=== PATIENT | female | born 1960 | race Caucasian/White ===

== ENCOUNTER 2023-05-08 08:23 | Day surgery (SDC) | payer MEDICARE, MEDICAID, SELFPAY ==
[2023-05-03 16:26] VITALS: BMI 32.0
--- NOTE | 2023-05-05 07:43 | MHC.SHP ---
Pre-Procedural Eval Section A Date of Service: 05/05/23 The patient is an INPATIENT: No Changes since office visit: No Cold of Flu in the past 2 weeks, No New Medical Problems, No Changes in Medication and No Patient answered all questions The History & Physical has been completed within 30 days and I have reviewed it.: Yes Section B Chief Complaint: Age-related nuclear cataract, right eye Allergies: Allergies Allergy/AdvReac Type Severity Reaction Status Date / Time bacitracin [BACITRACIN] Allergy Unknown UNKNOWN Unverified 04/09/20 14:42 benzocaine [From CEPACOL] Allergy Unknown UNKNOWN Unverified 04/09/20 14:42 Cephalosporins Allergy Unknown UNKNOWN Unverified 04/09/20 14:42 [CEPHALOSPORINS] cetylpyridinium chloride Allergy Unknown UNKNOWN Unverified 04/09/20 14:42 [From CEPACOL] clonazepam [CLONAZEPAM] Allergy Unknown UNKNOWN Unverified 04/09/20 14:42 menthol [From CEPACOL] Allergy Unknown UNKNOWN Unverified 04/09/20 14:42 nickel [NICKEL] Allergy Unknown UNKNOWN Unverified 04/09/20 14:42 silver sulfadiazine Allergy Unknown Unknown Verified 05/03/23 16:05 [From Silvadene] Sulfa (Sulfonamide Allergy Unknown Unknown Verified 05/03/23 16:05 Antibiotics) sulindac [Sulindac] Allergy Unknown UNKNOWN Unverified 04/09/20 14:42 From KEFLEX Allergy Unknown UNKNOWN Uncoded 04/09/20 14:42 From PLAQUENIL Allergy Unknown UNKNOWN Uncoded 04/09/20 14:42 From SEROQUEL Allergy Unknown UNKNOWN Uncoded 04/09/20 14:42 Plan Diagnosis/Plan: Unchanged I have reviewed the history and physical and performed a pertinent physical examination on my patient. No changes have occurred unless specified. Time Spent With Patient Time: Total time managing care of this patient today ____ minutes.
--- NOTE | 2023-05-05 10:32 | P.CONAN_ITS ---
Documented by User: Shefali Alejandro NP 05/05/23 10:37 HPI - Anesthesia Eval Consult details Narrative: 62yo F for Right Cataract Extraction IOL Insertion Medically cleared No previous cataract on record PMFSH Past Medical History Medical History Diabetes mellitus Cataract GERD (gastroesophageal reflux disease) Rheumatoid arthritis Anxiety and depression Edema of both legs Elevated cholesterol HTN (hypertension) Thyroid disease Surgical History Surgical History Hx of colonoscopy History of orthopedic surgery Social History Social History Are you a primary health care facility administrator to a significant other at home: No Do you presently have visiting nurse or other home services: Yes ([facility] -, Fri, Sat+Sun 03-29) Patient Tobacco Use Status: Current everyday Tobacco user Tobacco use type: Cigarette Cigarettes Per Day: 8 Years Smoked: 20+ Smoked in Last 30 Days: Yes Use of substances other than those prescribed or required for medical reasons: No Have you been hit, kicked, punched, or otherwise hurt by someone within the past year? If so, by whom?: No Are you DNR?: No Advance Directives: No Advance Directives Information Provided: Yes Advance Directives on File: No Recently lost weight without trying: No Meds Allergies Allergy/AdvReac Type Severity Reaction Status Date / Time bacitracin [BACITRACIN] Allergy Unknown UNKNOWN Verified 05/08/23 09:11 benzocaine [From CEPACOL] Allergy Unknown UNKNOWN Verified 05/08/23 09:11 Cephalosporins Allergy Unknown UNKNOWN Verified 05/08/23 09:11 [CEPHALOSPORINS] cetylpyridinium chloride Allergy Unknown UNKNOWN Verified 05/08/23 09:11 [From CEPACOL] clonazepam [CLONAZEPAM] Allergy Unknown UNKNOWN Verified 05/08/23 09:11 menthol [From CEPACOL] Allergy Unknown UNKNOWN Verified 05/08/23 09:11 nickel [NICKEL] Allergy Unknown UNKNOWN Verified 05/08/23 09:11 silver sulfadiazine Allergy Unknown Unknown Verified 05/08/23 09:11 [From Silvadene] Sulfa (Sulfonamide Allergy Unknown Unknown Verified 05/08/23 09:11 Antibiotics) sulindac [Sulindac] Allergy Unknown UNKNOWN Verified 05/08/23 09:11 From KEFLEX Allergy Unknown UNKNOWN Uncoded 04/09/20 14:42 From PLAQUENIL Allergy Unknown UNKNOWN Uncoded 04/09/20 14:42 From SEROQUEL Allergy Unknown UNKNOWN Uncoded 04/09/20 14:42 Home Medications Medication Instructions Recorded Confirmed Last Taken Type amitriptyline 50 mg tablet 50 mg PO BEDTIME 05/03/23 05/03/23 Unknown History atenolol 25 mg tablet 25 mg PO DAILY 05/03/23 05/03/23 Unknown History atorvastatin 10 mg tablet 10 mg PO DAILY 05/03/23 05/03/23 Unknown History buspirone 5 mg tablet 5 mg PO TID 05/03/23 05/03/23 Unknown History calcium carbonate 600 mg-vitamin 1 tab PO BID 05/03/23 05/03/23 Unknown History D3 10 mcg (400 unit) tablet celecoxib 200 mg capsule 200 mg PO BID 05/03/23 05/03/23 Unknown History clotrimazole 1 % topical cream appl topical DAILY 05/03/23 Unknown History cyanocobalamin (vitamin B-12) 1,000 mcg PO DAILY 05/03/23 05/03/23 Unknown History 1,000 mcg tablet ferrous sulfate 325 mg (65 mg 325 mg PO DAILY 05/03/23 05/03/23 Unknown History iron) tablet (FeroSul) fexofenadine 60 mg tablet 60 mg PO DAILY 05/03/23 05/03/23 Unknown History fluticasone propionate 50 2 spray intranasal DAILY 05/03/23 05/03/23 Unknown History mcg/actuation nasal spray,suspension folic acid 1 mg tablet 1 mg PO DAILY 05/03/23 05/03/23 Unknown History furosemide 20 mg tablet 20 mg PO BID 05/03/23 05/03/23 Unknown History levothyroxine 100 mcg tablet 100 mcg PO DAILY 05/03/23 05/03/23 Unknown History magnesium oxide 400 mg (241.3 mg 400 mg PO BID 05/03/23 05/03/23 Unknown History magnesium) tablet methotrexate sodium 2.5 mg tablet 20 mg PO QWEEK 05/03/23 05/03/23 Unknown History omeprazole 40 mg capsule,delayed 40 mg PO DAILY 05/03/23 05/03/23 Unknown History release potassium chloride 10 mEq 10 meq PO BID 05/03/23 05/03/23 Unknown History capsule,extended release Exam Exam Date and Time: May 05, 2023 1032 Height,Weight and Vital Signs: Height 5 ft Weight 74.389 kg Assessment and Plan Assessment Anesthesia Assessment: Chart Reviewed Documented by User: Roberto Elliott MD 05/08/23 09:35 [facility] Past Medical History Medical History Diabetes mellitus Cataract GERD (gastroesophageal reflux disease) Rheumatoid arthritis Anxiety and depression Edema of both legs Elevated cholesterol HTN (hypertension) Thyroid disease Family History Family history of problems with anesthesia: No Surgical History Surgical History Hx of colonoscopy History of orthopedic surgery History of Problems with Anesthesia: No Social History Social History Are you a primary health care facility administrator to a significant other at home: No Do you presently have visiting nurse or other home services: Yes ([facility] 9-2, Fri, Sat+Sun 9-6) Patient Tobacco Use Status: Current everyday Tobacco user Tobacco use type: Cigarette Cigarettes Per Day: 8 Years Smoked: 20+ Smoked in Last 30 Days: Yes Use of substances other than those prescribed or required for medical reasons: No Have you been hit, kicked, punched, or otherwise hurt by someone within the past year? If so, by whom?: No Are you DNR?: No Advance Directives: No Advance Directives Information Provided: Yes Advance Directives on File: No Recently lost weight without trying: No Meds Allergies Allergy/AdvReac Type Severity Reaction Status Date / Time bacitracin [BACITRACIN] Allergy Unknown UNKNOWN Verified 05/08/23 09:11 benzocaine [From CEPACOL] Allergy Unknown UNKNOWN Verified 05/08/23 09:11 Cephalosporins Allergy Unknown UNKNOWN Verified 05/08/23 09:11 [CEPHALOSPORINS] cetylpyridinium chloride Allergy Unknown UNKNOWN Verified 05/08/23 09:11 [From CEPACOL] clonazepam [CLONAZEPAM] Allergy Unknown UNKNOWN Verified 05/08/23 09:11 menthol [From CEPACOL] Allergy Unknown UNKNOWN Verified 05/08/23 09:11 nickel [NICKEL] Allergy Unknown UNKNOWN Verified 05/08/23 09:11 silver sulfadiazine Allergy Unknown Unknown Verified 05/08/23 09:11 [From Silvadene] Sulfa (Sulfonamide Allergy Unknown Unknown Verified 05/08/23 09:11 Antibiotics) sulindac [Sulindac] Allergy Unknown UNKNOWN Verified 05/08/23 09:11 From KEFLEX Allergy Unknown UNKNOWN Uncoded 04/09/20 14:42 From PLAQUENIL Allergy Unknown UNKNOWN Uncoded 04/09/20 14:42 From SEROQUEL Allergy Unknown UNKNOWN Uncoded 04/09/20 14:42 Home Medications Medication Instructions Recorded Confirmed Last Taken Type amitriptyline 50 mg tablet 50 mg PO BEDTIME 05/03/23 05/03/23 Unknown History atenolol 25 mg tablet 25 mg PO DAILY 05/03/23 05/03/23 Unknown History atorvastatin 10 mg tablet 10 mg PO DAILY 05/03/23 05/03/23 Unknown History buspirone 5 mg tablet 5 mg PO TID 05/03/23 05/03/23 Unknown History calcium carbonate 600 mg-vitamin 1 tab PO BID 05/03/23 05/03/23 Unknown History D3 10 mcg (400 unit) tablet celecoxib 200 mg capsule 200 mg PO BID 05/03/23 05/03/23 Unknown History clotrimazole 1 % topical cream appl topical DAILY 05/03/23 Unknown History cyanocobalamin (vitamin B-12) 1,000 mcg PO DAILY 05/03/23 05/03/23 Unknown History 1,000 mcg tablet ferrous sulfate 325 mg (65 mg 325 mg PO DAILY 05/03/23 05/03/23 Unknown History iron) tablet (FeroSul) fexofenadine 60 mg tablet 60 mg PO DAILY 05/03/23 05/03/23 Unknown History fluticasone propionate 50 2 spray intranasal DAILY 05/03/23 05/03/23 Unknown History mcg/actuation nasal spray,suspension folic acid 1 mg tablet 1 mg PO DAILY 05/03/23 05/03/23 Unknown History furosemide 20 mg tablet 20 mg PO BID 05/03/23 05/03/23 Unknown History levothyroxine 100 mcg tablet 100 mcg PO DAILY 05/03/23 05/03/23 Unknown History magnesium oxide 400 mg (241.3 mg 400 mg PO BID 05/03/23 05/03/23 Unknown History magnesium) tablet methotrexate sodium 2.5 mg tablet 20 mg PO QWEEK 05/03/23 05/03/23 Unknown History omeprazole 40 mg capsule,delayed 40 mg PO DAILY 05/03/23 05/03/23 Unknown History release potassium chloride 10 mEq 10 meq PO BID 05/03/23 05/03/23 Unknown History capsule,extended release Exam Airway Mallampati Class: III TM Dist: >3cm Neck ROM: Full Denture: Upper and Lower Assessment and Plan Assessment Anesthesia Assessment: Anesthesia Plan Discussed Final Anesthetic Review Family History of Problems with Anesthesia: No History of Problems with Anesthesia: No NPO: Yes ASA Class: III Final Preanesthetic Review: No Changes in Pt Med Stat, Meds/Allgs Chart Reviewed, Consent Obtained/Reviewed and Anes Risks/Benef Reviewed Patient Risk: Intermediate Procedure Risk: Low Anesthetic Plan Anesthetic Plan: MAC: Disposition: Standard PACU
[2023-05-08 09:13] VITALS: BP 135/74; PULSE 63; RESP 16; TEMP 35.7; O2SAT 100
[2023-05-08] MEDS: Tetracaine HCl/PF 0.5% Oph Sol 4 ML DROPS 1 DROP EYE-RIGHT (09:20)
[2023-05-08] MEDS: Cyclopentolate 1 % Ophth Sol 2 ML DRPBTL 1 DROP EYE-RIGHT ×3 (09:22→09:30)
[2023-05-08] MEDS: Tropicamide 1 % Ophth Sol 3 ML BTL 1 DROP EYE-RIGHT ×3 (09:23→09:32)
[2023-05-08] MEDS: Ketorolac Tromethamine 0.5% Op 5 ML DROPS 1 DROP EYE-RIGHT ×3 (09:24→09:33)
[2023-05-08] MEDS: Phenylephrine HCL 2.5% Oph SoL 2 ML BOTTLE 1 DROP EYE-RIGHT ×3 (09:25→09:34)
[2023-05-08] MEDS: Lactated Ringers 500 ML 50 ML IV (09:27)
--- NOTE | 2023-05-08 09:35 | PC.NURSE ---
Dr. Sharp notified of potential reactions to eye gtt related to confirmed allergies. Per Dr Marvin ok to proceed with all administration of gtts as ordered.
--- NOTE | 2023-05-08 09:54 | HO.PNOPHT ---
Ophthalmology Procedure Procedure Date of Service: 05/08/23 Ophthalmology Viscoelastic: Healjamila Duet Dual Pack Pro Ophthalmology Lenses: TECNIS [id number] (22.5) Procedure Notes: PREOPERATIVE DIAGNOSIS: Decreased visual acuity right eye secondary to cataract POSTOPERATIVE DIAGNOSIS: Same PROCEDURE: Right cataract extraction with intraocular lens insertion SURGEON: Brandon Sharp M.D. ANESTHESIA: Topical/MAC ESTIMATED BLOOD LOSS: None COMPLICATIONS: None After obtaining informed consent, the patient was brought to the operating room suite and placed in the supine position. After adequate sedation per anesthesia, topical drops of Tetracaine were given to the right eye. The eye was then prepped and draped in the usual sterile fashion. The operating room microscope was then positioned over the operative eye and a lid speculum placed. A paracentesis was created. Viscoelastic was then instilled into the anterior chamber. A three plane incision was then created temporally, utilizing a 2.85 mm keratome. Capsulotomy forceps were then utilized to create a circular tear capsulotomy. Hydrodissection and hydrodelineation were carried out until adequate mobilization of the nucleus occurred. Phacoemulsification was then utilized to remove the dense central nucleus followed by removal of the cortical material utilizing the automated aspiration irrigation unit. Viscoelastic was instilled into the posterior capsular bag followed by placement of a posterior chamber intraocular lens without difficulty. The residual Viscoelastic was then removed utilizing the automated IA machine. The wound was checked and found to be watertight. The patient tolerated the procedure well and the lid speculum was removed. Intracameral injection of Vigamox 0.1 mL followed by a subtenon injection of Kenalog-40 0.2 mL were administered. The patient will be seen in the a.m.
[2023-05-08 10:47] VITALS: BP 140/51; PULSE 62; RESP 16; TEMP 36.3; O2SAT 100
== END 2023-05-08 10:49 | disposition home or self-care (01) ==
PROVIDERS: PCP Student in an Organized Health Care Education/Training Program; Visit Provider Ophthalmology
PROC: (CPT 66985; principal; 2023-05-08 10:30)
DX: H25.11 Age-related nuclear cataract, right eye (principal); H52.4 Presbyopia; Z83.511 Family history of glaucoma; H18.413 Arcus senilis, bilateral; I10 Essential (primary) hypertension; E11.9 Type 2 diabetes mellitus without complications; E78.5 Hyperlipidemia, unspecified; E06.3 Autoimmune thyroiditis; M32.9 Systemic lupus erythematosus, unspecified; M79.7 Fibromyalgia; M06.9 Rheumatoid arthritis, unspecified; Z79.1 Long term (current) use of non-steroidal anti-inflammatories (NSAID); Z79.51 Long term (current) use of inhaled steroids; Z79.899 Other long term (current) drug therapy; Z88.1 Allergy status to other antibiotic agents; Z88.2 Allergy status to sulfonamides; F17.210 Nicotine dependence, cigarettes, uncomplicated
CPT/HCPCS: 66984; J2250; J3301; V2632

== ENCOUNTER 2023-05-22 07:45 | Day surgery (SDC) | payer MEDICARE, MEDICAID, SELFPAY ==
[2023-05-18 10:09] VITALS: BMI 32.0
--- NOTE | 2023-05-19 07:51 | MHC.SHP ---
Pre-Procedural Eval Section A Date of Service: 05/19/23 The patient is an INPATIENT: No Changes since office visit: No Cold of Flu in the past 2 weeks, No New Medical Problems, No Changes in Medication and No Patient answered all questions The History & Physical has been completed within 30 days and I have reviewed it.: Yes Section B Chief Complaint: Age-related nuclear cataract, left eye Allergies: Allergies Allergy/AdvReac Type Severity Reaction Status Date / Time bacitracin [BACITRACIN] Allergy Unknown UNKNOWN Verified 05/08/23 09:11 benzocaine [From CEPACOL] Allergy Unknown UNKNOWN Verified 05/08/23 09:11 Cephalosporins Allergy Unknown UNKNOWN Verified 05/08/23 09:11 [CEPHALOSPORINS] cetylpyridinium chloride Allergy Unknown UNKNOWN Verified 05/08/23 09:11 [From CEPACOL] clonazepam [CLONAZEPAM] Allergy Unknown UNKNOWN Verified 05/08/23 09:11 menthol [From CEPACOL] Allergy Unknown UNKNOWN Verified 05/08/23 09:11 nickel [NICKEL] Allergy Unknown UNKNOWN Verified 05/08/23 09:11 silver sulfadiazine Allergy Unknown Unknown Verified 05/08/23 09:11 [From Silvadene] Sulfa (Sulfonamide Allergy Unknown Unknown Verified 05/08/23 09:11 Antibiotics) sulindac [Sulindac] Allergy Unknown UNKNOWN Verified 05/08/23 09:11 From KEFLEX Allergy Unknown UNKNOWN Uncoded 04/09/20 14:42 From PLAQUENIL Allergy Unknown UNKNOWN Uncoded 04/09/20 14:42 From SEROQUEL Allergy Unknown UNKNOWN Uncoded 04/09/20 14:42 Plan Diagnosis/Plan: Unchanged I have reviewed the history and physical and performed a pertinent physical examination on my patient. No changes have occurred unless specified. Time Spent With Patient Time: Total time managing care of this patient today ____ minutes.
[2023-05-22 08:26] VITALS: BP 101/57; PULSE 62; RESP 16; TEMP 36.4; O2SAT 95
[2023-05-22] MEDS: Tetracaine HCl/PF 0.5% Oph Sol 4 ML DROPS 1 DROP EYE-LEFT (08:30)
[2023-05-22] MEDS: Cyclopentolate 1 % Ophth Sol 2 ML DRPBTL 1 DROP EYE-LEFT ×3 (08:30→08:36)
[2023-05-22] MEDS: Tropicamide 1 % Ophth Sol 3 ML BTL 1 DROP EYE-LEFT ×3 (08:31→08:36)
[2023-05-22] MEDS: Ketorolac Tromethamine 0.5% Op 5 ML DROPS 1 DROP EYE-LEFT ×3 (08:32→08:37)
[2023-05-22] MEDS: Phenylephrine HCL 2.5% Oph SoL 2 ML BOTTLE 1 DROP EYE-LEFT ×3 (08:33→08:37)
--- NOTE | 2023-05-22 08:46 | HO.ANESPROP2 ---
[facility] Past Medical History Medical History (Updated 05/18/23 @ 10:07 by Tatiana Storm, [place]) Back pain Seasonal allergies Diabetes mellitus Cataract GERD (gastroesophageal reflux disease) Rheumatoid arthritis Anxiety and depression Edema of both legs Elevated cholesterol HTN (hypertension) Thyroid disease Family History Family history of problems with anesthesia: No Surgical History Surgical History (Updated 05/18/23 @ 10:06 by Tatiana Storm, [place]) Hx of right cataract extraction Hx of colonoscopy History of orthopedic surgery History of Problems with Anesthesia: No Social History Social History Are you a primary care transitions manager to a significant other at home: No Do you presently have visiting nurse or other home services: Yes ([employer], M-F 9-6, Sat+Sun 2 hours) Patient Tobacco Use Status: Current everyday Tobacco user Tobacco use type: Cigarette Cigarettes Per Day: 8 Years Smoked: 20+ Use of substances other than those prescribed or required for medical reasons: No Have you been hit, kicked, punched, or otherwise hurt by someone within the past year? If so, by whom?: No Are you DNR?: No Advance Directives: No Advance Directives Information Provided: Yes Advance Directives on File: No Recently lost weight without trying: No Meds Allergies Allergy/AdvReac Type Severity Reaction Status Date / Time bacitracin [BACITRACIN] Allergy Unknown UNKNOWN Verified 05/08/23 09:11 benzocaine [From CEPACOL] Allergy Unknown UNKNOWN Verified 05/08/23 09:11 Cephalosporins Allergy Unknown UNKNOWN Verified 05/08/23 09:11 [CEPHALOSPORINS] cetylpyridinium chloride Allergy Unknown UNKNOWN Verified 05/08/23 09:11 [From CEPACOL] clonazepam [CLONAZEPAM] Allergy Unknown UNKNOWN Verified 05/08/23 09:11 menthol [From CEPACOL] Allergy Unknown UNKNOWN Verified 05/08/23 09:11 nickel [NICKEL] Allergy Unknown UNKNOWN Verified 05/08/23 09:11 silver sulfadiazine Allergy Unknown Unknown Verified 05/08/23 09:11 [From Silvadene] Sulfa (Sulfonamide Allergy Unknown Unknown Verified 05/08/23 09:11 Antibiotics) sulindac [Sulindac] Allergy Unknown UNKNOWN Verified 05/08/23 09:11 From KEFLEX Allergy Unknown UNKNOWN Uncoded 04/09/20 14:42 From PLAQUENIL Allergy Unknown UNKNOWN Uncoded 04/09/20 14:42 From SEROQUEL Allergy Unknown UNKNOWN Uncoded 04/09/20 14:42 Active Medications: Current Medications Povidone Iodine (Povidone Iodine 5 % Ophth Soln 30 Ml Bottle) 1 appl EYE-LEFT PREOP PRN PRN Reason: Pre-Op Surgical Implant Prophy Home Medications Medication Instructions Recorded Confirmed Last Taken Type amitriptyline 50 mg tablet 50 mg PO BEDTIME 05/03/23 05/18/23 Unknown History atenolol 25 mg tablet 25 mg PO DAILY 05/03/23 05/18/23 Unknown History atorvastatin 10 mg tablet 10 mg PO DAILY 05/03/23 05/18/23 Unknown History buspirone 5 mg tablet 5 mg PO TID 05/03/23 05/18/23 Unknown History calcium carbonate 600 mg-vitamin 1 tab PO BID 05/03/23 05/18/23 Unknown History D3 10 mcg (400 unit) tablet celecoxib 200 mg capsule 200 mg PO BID 05/03/23 05/18/23 Unknown History clotrimazole 1 % topical cream appl topical DAILY 05/03/23 Unknown History cyanocobalamin (vitamin B-12) 1,000 mcg PO DAILY 05/03/23 05/18/23 Unknown History 1,000 mcg tablet ferrous sulfate 325 mg (65 mg 325 mg PO DAILY 05/03/23 05/18/23 Unknown History iron) tablet (FeroSul) fexofenadine 60 mg tablet 60 mg PO DAILY 05/03/23 05/18/23 Unknown History fluticasone propionate 50 2 spray intranasal DAILY 05/03/23 05/18/23 Unknown History mcg/actuation nasal spray,suspension folic acid 1 mg tablet 1 mg PO DAILY 05/03/23 05/18/23 Unknown History furosemide 20 mg tablet 20 mg PO BID 05/03/23 05/18/23 Unknown History levothyroxine 100 mcg tablet 100 mcg PO DAILY 05/03/23 05/18/23 Unknown History magnesium oxide 400 mg (241.3 mg 400 mg PO BID 05/03/23 05/18/23 Unknown History magnesium) tablet methotrexate sodium 2.5 mg tablet 20 mg PO QWEEK 05/03/23 05/18/23 Unknown History omeprazole 40 mg capsule,delayed 40 mg PO DAILY 05/03/23 05/18/23 Unknown History release potassium chloride 10 mEq 10 meq PO BID 05/03/23 05/18/23 Unknown History capsule,extended release Exam Exam Date and Time: May 22, 2023 0846 Height,Weight and Vital Signs: Height 5 ft Weight 74.389 kg Last Vital Signs Temp 97.5 F 05/22/23 08:26 Pulse 62 05/22/23 08:26 Resp 16 05/22/23 08:26 BP 101/57 L 05/22/23 08:26 Pulse Ox 95 05/22/23 08:26 O2 Del Method Room Air 05/22/23 08:26 Airway Mallampati Class: III TM Dist: >3cm Neck ROM: Limited Denture: Upper and Lower Assessment and Plan Assessment Anesthesia Assessment: Anesthesia Plan Discussed and Chart Reviewed Final Anesthetic Review Family History of Problems with Anesthesia: No History of Problems with Anesthesia: No NPO: Yes ASA Class: III Final Preanesthetic Review: No Changes in Pt Med Stat, Meds/Allgs Chart Reviewed, Consent Obtained/Reviewed and Anes Risks/Benef Reviewed Patient Risk: Intermediate Procedure Risk: Low Anesthetic Plan Anesthetic Plan: MAC: Disposition: Standard PACU
--- NOTE | 2023-05-22 09:07 | HO.PNOPHT ---
Ophthalmology Procedure Procedure Date of Service: 05/22/23 Ophthalmology Viscoelastic: Healjamila Duet Dual Pack Pro Ophthalmology Lenses: TECVAMSI [id number] (23) Procedure Notes: PREOPERATIVE DIAGNOSIS: Decreased visual acuity left eye secondary to cataract POSTOPERATIVE DIAGNOSIS: Same PROCEDURE: Left cataract extraction with intraocular lens insertion SURGEON: Brandon Sharp M.D. ANESTHESIA: Topical/MAC ESTIMATED BLOOD LOSS: None COMPLICATIONS: None After obtaining informed consent, the patient was brought to the operation room suite and placed in the supine position. After adequate sedation per anesthesia, topical drops of Tetracaine were given to the left eye. The eye was then prepped and draped in the usual sterile fashion. The operating room microscope was then positioned over the operative eye and a lid speculum placed. A paracentesis was created. Viscoelastic was then instilled into the anterior chamber. A three plane incision was then created temporally, utilizing a 2.85 mm keratome. Capsulotomy forceps were then utilized to create a circular tear capsulotomy. Hydrodissection and hydrodelineation were carried out until adequate mobilization of the nucleus occurred. Phacoemulsification was then utilized to remove the dense central nucleus followed by removal of the cortical material utilizing the automated aspiration irrigation unit. Viscoat elastic was instilled into the posterior capsular bag followed by placement of a posterior chamber intraocular lens without difficulty. The residual Viscoat elastic was then removed utilizing the automated IA machine. The wound was check and found to be watertight. The patient tolerated the procedure well and the lid speculum was removed. Intracameral injection of Vigamox 0.1 mL followed by a subtenon injection of Kenalog-40 0.2 mL were administered. The patient will be seen in the a.m.
[2023-05-22 09:30] VITALS: BP 128/64; PULSE 58; RESP 12; TEMP 36.1; O2SAT 100
== END 2023-05-22 09:53 | disposition home or self-care (01) ==
PROVIDERS: PCP Student in an Organized Health Care Education/Training Program; Visit Provider Ophthalmology
PROC: (CPT 66985; principal; 2023-05-22 09:10)
DX: H25.12 Age-related nuclear cataract, left eye (principal); H52.4 Presbyopia; Z83.511 Family history of glaucoma; H18.413 Arcus senilis, bilateral; I10 Essential (primary) hypertension; E07.9 Disorder of thyroid, unspecified; K21.9 Gastro-esophageal reflux disease without esophagitis; M06.9 Rheumatoid arthritis, unspecified; M35.00 Sjogren syndrome, unspecified; M32.9 Systemic lupus erythematosus, unspecified; M79.7 Fibromyalgia; Z79.1 Long term (current) use of non-steroidal anti-inflammatories (NSAID); Z79.899 Other long term (current) drug therapy; Z88.1 Allergy status to other antibiotic agents; Z88.2 Allergy status to sulfonamides; Z88.8 Allergy status to other drugs, medicaments and biological substances; F17.210 Nicotine dependence, cigarettes, uncomplicated
CPT/HCPCS: 66984; J2250; J3010; J3301; V2632

== ENCOUNTER 2023-06-05 11:10 | Outpatient (AMB) | payer MEDICARE, MEDICAID, SELFPAY ==
[2023-06-05 11:19] VITALS: BMI 30.7
--- NOTE | 2023-06-05 11:19 | HO.NEPHOV ---
HPI HPI Comments History of Present Illness Details Kelsey is a 62-year-old female with past medical history of excess alcohol intake, type 2 diabetes mellitus, dyslipidemia, hypertension, rheumatoid arthritis, GERD, Ijeoma's thyroiditis, hypothyroidism, scleroderma, SLE, Sjogren's and depression presented to outpatient office for follow-up of her CKD. She follows up with Dr. Monroy who is her primary carer she has no history of any significant proteinuria. She follows up with her rehabilitation coordinator closely. She has history of anemia and was going to be followed by chorus dancer. She denies any chest pain, shortness of breath, nausea, vomiting, diarrhea, proximal nocturnal dyspnea, orthopnea, worsening pedal edema or urinary symptoms. She has not had any recent infections or did not take any antibiotics or [id number] medications. ON LICENSE OF [facility] Medical History (Updated 06/06/23 @ 08:55 by Justin Gamboa MD) Back pain Seasonal allergies Diabetes mellitus Cataract GERD (gastroesophageal reflux disease) Rheumatoid arthritis Anxiety and depression Edema of both legs Elevated cholesterol HTN (hypertension) Thyroid disease Surgical History (Updated 05/18/23 @ 10:06 by Tatiana Storm RN) Hx of right cataract extraction Hx of colonoscopy History of orthopedic surgery Social History Are you a primary medicare nurse to a significant other at home: No Do you presently have visiting nurse or other home services: Yes ([employer], M-F 9-6, Sat+Sun 2 hours) Patient Tobacco Use Status: Current everyday Tobacco user Tobacco use type: Cigarette Cigarettes Per Day: 8 Years Smoked: 20+ Vital Signs 06/05/23 11:19 Height 5 ft Weight 157 lb 4 oz BMI 30.7 Physical Exam Vital Signs: BMI result Body Mass Index 30.7 Const General: comfortable and no acute distress Orientation/consciousness: patient oriented x3 HEENT Other: Shiny skin on the face Head: Yes normocephalic Mouth: Normal oral and palatal mucosa present Eyes EOM: EOMs intact bilaterally Neck Neck: Yes supple Resp Auscultation: clear to auscultation bilaterally Cardio Jugular venous distension: no JVD Rate: regular rate Heart sounds: Murmur heart sound present GI Palpation (GI): Soft to palpation Auscultation: normal bowel sounds General: Yes no CVA tenderness Back/Spine/Pelvis Back: no CVA tenderness Neuro General: patient oriented x3 and moves all extremities Extrem General: Yes no pedal edema Assessment & Plan Assessment & Plan (1) HTN (hypertension): Code(s): I10 - Essential (primary) hypertension Qualifiers: Hypertension type: primary hypertension Qualified Code(s): I10 - Essential (primary) hypertension (2) CKD (chronic kidney disease) stage 3, GFR 30-59 ml/min: Code(s): N18.30 - Chronic kidney disease, stage 3 unspecified Qualifiers: Chronic kidney disease stage 3 subtype: stage 3a (GFR 45-59) Qualified Code(s): N18.31 - Chronic kidney disease, stage 3a (3) Anemia in chronic illness: Code(s): D63.8 - Anemia in other chronic diseases classified elsewhere Plan Her urine output is good. Her volume status is optimal. Blood pressure is at goal. Her serum creatinine is close to baseline. She follows up with Rheumatology & an chorus dancer. She had history of acute kidney injury due to tubular injury which has been resolved. She should avoid nonsteroidal anti-inflammatory medications if at all possible. She is maintained on methotrexate as well as diuretics. If she continues to have hypokalemia she can discontinue her potassium replacement and can be initiated on spironolactone 12.5 mg daily. She needs to abstain from alcohol. Follow-up blood work ordered. All these issues have been discussed in detail. Follow-up appointment given. Time spent for retrieving data, recommendation and patient encounter 27 minutes. Orders: Orders Electrolytes 06/05/23 I10 - Essential (primary) hypertension Blood Urea Nitrogen 06/05/23 I10 - Essential (primary) hypertension Complete Blood Count Auto Diff 06/05/23 I10 - Essential (primary) hypertension Creatinine 06/05/23 I10 - Essential (primary) hypertension Protein Creatinine Ratio, Ur 06/05/23 I10 - Essential (primary) hypertension Coding Level of Care Code Est Pt Level 3 (66754) Diagnoses Primary hypertension I10 Hypertension type: primary hypertension Stage 3a chronic kidney disease N18.31 Chronic kidney disease stage 3 subtype: stage 3a (GFR 45-59) Anemia in chronic illness D63.8
== END 2023-06-05 11:47 | disposition home or self-care (01) ==
PROVIDERS: PCP Student in an Organized Health Care Education/Training Program; Visit Provider Internal Medicine Nephrology
DX: I12.9 Hypertensive chronic kidney disease with stage 1 through stage 4 chronic kidney disease, or unspecified chronic kidney disease (principal); N18.31 Chronic kidney disease, stage 3a; D63.1 Anemia in chronic kidney disease; Z79.631 Long term (current) use of antimetabolite agent
CPT/HCPCS: 99214

== ENCOUNTER → 2023-06-05 11:10 | Outpatient (BNVA) | payer MEDICARE, MEDICAID, SELFPAY | PROVIDERS: PCP Student in an Organized Health Care Education/Training Program; Visit Provider Internal Medicine Nephrology | DX: I12.9 Hypertensive chronic kidney disease with stage 1 through stage 4 chronic kidney disease, or unspecified chronic kidney disease (principal); N18.31 Chronic kidney disease, stage 3a; D63.8 Anemia in other chronic diseases classified elsewhere | CPT/HCPCS: 99212 ==